=== PATIENT | male | born 1995 | race Caucasian/White ===

== ENCOUNTER 2018-11-16 13:46 | Inpatient (IN) | payer OTHER ==
[2018-11-16 18:11] VITALS: BMI 25.0
--- NOTE | 2018-11-16 18:59 | HP ---
COWS - Scale Resting Pulse: 0= [place] 80 or Below Sweatin= No chills or Flushing Restless Observation: 0= Sits Still Pupil Size: 0= Normal to Room Light Bone or Joint Aches: 0= None Runny Nose/ Eye Tearin= Constantly Teary/Runny GI Upset > 30mins: 0= None Tremor Observation: 2= Slight Tremor Visible Yawning Observation: 4= Several Times/Minute Anxiety or Irritability: 2=Irritable/Anxious Goose Flesh Skin: 0=Smooth Skin COWS Score: 12 CIWA Score - Admission Criteria OASAS Guidelines: Admission for Medically Managed Detox: Requires at least one of the followin. CIWA greater than 12 2. Seizures within the past 24 hours 3. Delirium tremens within the past 24 hours 4. Hallucinations within the past 24 hours 5. Acute intervention needed for co occurring medical disorder 6. Acute intervention needed for co occurring psychiatric disorder 7. Severe withdrawal that cannot be handled at a lower level of care (continued vomiting, continued diarrhea, abnormal vital signs) requiring intravenous medication and/or fluids 8. Admission ROS [facility] Allergies/Adverse Reactions: Allergies Allergy/AdvReac Type Severity Reaction Status Date / Time No Known Allergies Allergy Verified 11/16/18 18:05 History of Present Illness: pt here requesting detox from oxycodone use , reports 30 mg 1 -2 x/day since age 21 , illicitly , denies having rx , started using meds from a friend w/ sickle cell/ THR , latest use yesterday , current symptoms as above , reports if not using " I am not enjoying my time " claims was referred by a facility [place] . Longest sobriety 3-4 days . 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 The information displayed on this report is compiled from pharmacy submissions to the Department, and accurately reflects the information as submitted by the pharmacies. This report was requested by: Ade Angeles | Reference #: [id number] Others' Prescriptions Patient Name: Jude Holliday Date: 1995 Address: [address] [place] [address] Sex: Male Rx Written Rx Dispensed Drug Quantity Days Supply Prescriber Name 10/05/2018 10/05/2018 suboxone 2 mg-0.5 mg sl film 8 3 Sharif Li MD Exam Limitations: Clinical Condition - Ebola screening Have you traveled outside of the country in the last 21 days: No Have you had contact with anyone from an Ebola affected area: No - Review of Systems Constitutional: See HPI EENT: reports: See HPI, Nose Congestion Respiratory: reports: No Symptoms reported, Other (reports intermittent shortness of breath with smoking tobacco and cannabis) Cardiac: reports: Other (reports intermittent chest pain with smoking tobacco and cannabis) GI: reports: See HPI : reports: No Symptoms Reported Musculoskeletal: reports: Back Pain (reports scoliosis w/ chonic LBP) Integumentary: reports: No Symptoms Reported Neuro: reports: Headache (reports [facility] when not using oxycodone) Endocrine: reports: No Symptoms Reported Psychiatric: reports: Orientated x3, Anxious Patient History - Smoking Cessation Smoking history: Current every day smoker Initiated information on smoking cessation: No - Substances abused Oxycontin Substance route: Inhalation Frequency: Daily Amount used: 6 30 MG TABS Age of first use: 20 Date of last use: 11/15/18 Family Disease History - Family Disease History Family History: Denies Other Family History: no children Admission Physical Exam BHS - Vital Signs Vital Signs: Vital Signs - 24 hr 11/16/18 18:07 Temperature 99.1 F Pulse Rate 53 L Respiratory 18 Rate Blood Pressure 132/73 - Physical General Appearance: Yes: Mild Distress HEENTM: Yes: EOMI, Hearing grossly Normal, Normocephalic, Normal Voice Respiratory: Yes: Chest Non-Tender, Lungs Clear, Normal Breath Sounds Neck: Yes: No masses,lesions,Nodules, Trachea in good position Cardiology: Yes: Regular Rhythm, Regular Rate, S1, S2 Abdominal: Yes: Normal Bowel Sounds, Non Tender, Soft Back: Yes: Other (dextroscoliosis lumbar , tender PVM L-spine left > R side .) Musculoskeletal: Yes: Gait Steady, Back pain Extremities: Yes: Normal Inspection, Normal Range of Motion, Non-Tender, Tremors Neurological: Yes: Fully Oriented, Alert, Motor Strength 5/5, Normal Mood/Affect Integumentary: Yes: Warm - Diagnostic (1) Opioid abuse Current Visit: Yes Status: Acute (2) Nicotine dependence Current Visit: Yes Status: Chronic Qualifiers: Nicotine product type: cigarettes (3) Cannabis dependence Current Visit: Yes Status: Chronic (4) Sedative, hypnotic or anxiolytic abuse Current Visit: Yes Status: Acute (5) Alcohol abuse, episodic drinking behavior Current Visit: No Status: Suspected Breathalyzer - Breathalyzer Breathalyzer: 0 Urine Drug Screen - Test Device Lot number: [id number] Expiration date: 06/11/20 - Control Is test valid?: Yes - Results Drug screen NEGATIVE: No Urine drug screen results: THC-Marijuana, MET-Methamphetamine, OXY-Oxycodone, BZO-Benzodiazepines Inpatient Rehab Admission - Rehab Decision to Admit Inpatient rehab admission?: No
[2018-11-16] MEDS ORDERED: NICOTINE POLACRILEX 2 MG GUM BUC PRN (19:18)
[2018-11-16] MEDS ORDERED: DICYCLOMINE HCL 10 MG CAPSULE PO PRN (19:18)
[2018-11-16] MEDS ORDERED: cloNIDine HCL 0.1 MG TABLET PO PRN (19:18)
[2018-11-16] MEDS ORDERED: IBUPROFEN 400 MG TABLET (FP) PO PRN (19:18)
[2018-11-16] MEDS ORDERED: hydrOXYzine PAMOATE 25 MG CAPSULE (FP) PO PRN (19:18)
[2018-11-16] MEDS ORDERED: ACETAMINOPHEN 325 MG TABLET (FP) PO PRN ×2 (19:18)
[2018-11-16] MEDS ORDERED: MAGNESIUM CITRATE 300 ML BOTTLE PO PRN (19:18)
[2018-11-16] MEDS ORDERED: MAG HYDROX/AL HYDROX/SIMETH 30 ML UNIT-DOSE CUP PO PRN (19:18)
[2018-11-16] MEDS ORDERED: MENTHOL/PHENOL 1 EACH UD MM PRN (19:18)
[2018-11-16] MEDS: diazePAM 5 MG TABLET PO PRN (20:08)
[2018-11-16] MEDS: THIAMINE HCL 100 MG TABLET (FP) PO SCH (22:05)
[2018-11-16] MEDS: MELATONIN 5 MG TABLETS PO PRN (22:05)
[2018-11-16] MEDS: diazePAM 5 MG TABLET PO SCH (22:05)
[2018-11-16] MEDS ORDERED: METHADONE HCL 10 MG TABLET (FOR DETOX USE ONLY) PO ONE (23:00)
[2018-11-17] MEDS: diazePAM 5 MG TABLET PO SCH ×3 (06:20→22:14)
[2018-11-17] MEDS ORDERED: METHADONE HCL 5 MG TABLET (FOR DETOX USE ONLY) PO ONE (10:00)
[2018-11-17] MEDS: PRENATAL VITAMINS W/ FOLIC ACID TABLET (FP) PO SCH (10:15)
[2018-11-17] MEDS: MAGNESIUM HYDROX 2400MG/30ML ORAL SUSPENSION 30 ML CUP PO PRN (10:17)
[2018-11-17] MEDS ORDERED: PNEUMOCOCCAL 23 VACCINE 0.5 ML VIAL IM ONE (12:00)
[2018-11-17] MEDS ORDERED: PNEUMOC 13-VAL CONJ-DIP CRM/PF 0.5 ML DISP.SYRIN IM ONE (12:00)
[2018-11-17 12:37] LABS: ALK PHOS 47 U/L (45-117); ANION GAP 6 MMOL/L (8-16); BILIRUBIN,TOTAL 0.6 mg/dL (0.2-1); BLOOD UREA NITROGEN 13 mg/dL (7-18); CALCIUM 9.5 mg/dL (8.5-10.1); CHLORIDE 106 mmol/L (98-107); CO2 29 mmol/L (21-32); GLUCOSE,RANDOM 74 mg/dL (74-106); POTASSIUM 3.8 mmol/L (3.5-5.1); SGOT/AST 13 U/L (15-37); SGPT/ALT 21 U/L (13-61); SODIUM 141 mmol/L (136-145)
[2018-11-17 12:40] LABS: HEMATOCRIT 39.2 % (35.4-49); MCH 32.4 pg (25.7-33.7); MCHC 33.2 g/dl (32.0-35.9); MEAN CELL VOLUME 97.4 fl (80-96); MEAN PLT VOLUME 7.9 fl (7.5-11.1); PLATELET COUNT 321 K/MM3 (134-434); RBC 4.03 M/mm3 (4.00-5.60); WHITE BLOOD COUNT 5.9 K/mm3 (4.0-10.0)
[2018-11-17] MEDS: METHOCARBAMOL 500 MG TABLET PO PRN ×2 (13:30→22:16)
[2018-11-17] MEDS: diazePAM 5 MG TABLET PO PRN ×2 (13:30→17:53)
[2018-11-17] MEDS: NICOTINE 14 MG/24 HOURS TOPICAL PATCH TD SCH (15:30)
--- NOTE | 2018-11-17 17:17 | PN ---
BHS COWS - Scale Resting Pulse: 0= [place] 80 or Below Sweatin= Chills/Flushing Restless Observation: 1= Difficult to Sit Still Pupil Size: 0= Normal to Room Light Bone or Joint Aches: 2= Severe Diffuse Aches Runny Nose/ Eye Tearin= Nasal Congestion GI Upset > 30mins: 0= None Tremor Observation of Outstretched Hands: 0= None Yawning Observation: 1= 1-2x During Session Anxiety or Irritability: 2=Irritable/Anxious Goose Flesh Skin: 3=Piloerection COWS Score: 11 BHS Progress Note (SOAP) Subjective: Constipation, Interrupted Sleep, Body Aches. Objective: PATIENT A & O X 3, OBSERVED AMBULATING ON UNIT UNASSISTED. IN NO ACUTE DISTRESS. 11/17/18 17:15 Vital Signs Temperature 98.7 F 11/17/18 16:49 Pulse Rate 68 11/17/18 16:49 Respiratory Rate 19 11/17/18 16:49 Blood Pressure 109/65 11/17/18 16:49 O2 Sat by Pulse Oximetry (%) Laboratory Tests 11/17/18 11/17/18 11/17/18 07:30 07:30 07:30 WBC 5.9 RBC 4.03 Hgb 13.0 Hct 39.2 MCV 97.4 H MCH 32.4 MCHC 33.2 RDW 14.0 Plt Count 321 MPV 7.9 Sodium 141 Potassium 3.8 Chloride 106 Carbon Dioxide 29 Anion Gap 6 L BUN 13 Creatinine 1.0 Creat Clearance w eGFR 92.60 Random Glucose 74 Calcium 9.5 Total Bilirubin 0.6 AST 13 L ALT 21 Alkaline Phosphatase 47 Total Protein 7.0 Albumin 4.0 HIV 1&2 Antibody Screen Negative HIV P24 Antigen Negative LABS NOTED. RPR RESULT PENDING. 11/17/18 17:17 Assessment: 11/17/18 17:17 WITHDRAWAL SYMPTOMS. Plan: CONTINUE DETOX. INCREASE DAILY PO FLUID / WATER INTAKE.
[2018-11-17] MEDS: THIAMINE HCL 100 MG TABLET (FP) PO SCH (22:15)
[2018-11-17] MEDS: MELATONIN 5 MG TABLETS PO PRN (22:15)
[2018-11-18] MEDS ORDERED: METHADONE HCL 10 MG TABLET (FOR DETOX USE ONLY) PO ONE (10:00)
[2018-11-18] MEDS: NICOTINE 14 MG/24 HOURS TOPICAL PATCH TD SCH (10:10)
[2018-11-18] MEDS: diazePAM 5 MG TABLET PO SCH ×2 (10:10→22:21)
[2018-11-18] MEDS: PRENATAL VITAMINS W/ FOLIC ACID TABLET (FP) PO SCH (10:10)
[2018-11-18] MEDS: METHOCARBAMOL 500 MG TABLET PO PRN ×3 (10:10→23:12)
--- NOTE | 2018-11-18 11:20 | PN ---
S CIWA - CIWA Score Nausea/Vomitin Muscle Tremors: 2 Anxiety: 3 Agitation: 2 Paroxysmal Sweats: 1-Minimal Palms Moist Orientation: 0-Oriented Tacttile Disturbances: 1-Very Mild Itch/Numbness Auditory Disturbances: 1-Very Mild Visual Disturbances: 0-None Headache: 2-Mild CIWA-Ar Total Score: 14 BHS Progress Note (SOAP) Subjective: alert,irritable,anxious,interrupted sleep,tremor Objective: 11/18/18 11:19 Vital Signs Temperature 97.9 F 11/18/18 09:18 Pulse Rate 60 11/18/18 09:18 Respiratory Rate 18 11/18/18 09:18 Blood Pressure 110/61 11/18/18 09:18 O2 Sat by Pulse Oximetry (%) 11/18/18 11:19 Laboratory Last Values WBC 5.9 K/mm3 (4.0-10.0) 11/17/18 07:30 RBC 4.03 M/mm3 (4.00-5.60) 11/17/18 07:30 Hgb 13.0 GM/dL (11.7-16.9) 11/17/18 07:30 Hct 39.2 % (35.4-49) 11/17/18 07:30 MCV 97.4 fl (80-96) H 11/17/18 07:30 MCH 32.4 pg (25.7-33.7) 11/17/18 07:30 MCHC 33.2 g/dl (32.0-35.9) 11/17/18 07:30 RDW 14.0 % (11.9-15.9) 11/17/18 07:30 Plt Count 321 K/MM3 (134-434) 11/17/18 07:30 MPV 7.9 fl (7.5-11.1) 11/17/18 07:30 Sodium 141 mmol/L (136-145) 11/17/18 07:30 Potassium 3.8 mmol/L (3.5-5.1) 11/17/18 07:30 Chloride 106 mmol/L (98-107) 11/17/18 07:30 Carbon Dioxide 29 mmol/L (21-32) 11/17/18 07:30 Anion Gap 6 MMOL/L (8-16) L 11/17/18 07:30 BUN 13 mg/dL (7-18) 11/17/18 07:30 Creatinine 1.0 mg/dL (0.55-1.3) 11/17/18 07:30 Creat Clearance w eGFR 92.60 (>60) 11/17/18 07:30 Random Glucose 74 mg/dL (74-106) 11/17/18 07:30 Calcium 9.5 mg/dL (8.5-10.1) 11/17/18 07:30 Total Bilirubin 0.6 mg/dL (0.2-1) 11/17/18 07:30 AST 13 U/L (15-37) L 11/17/18 07:30 ALT 21 U/L (13-61) 11/17/18 07:30 Alkaline Phosphatase 47 U/L (45-117) 11/17/18 07:30 Total Protein 7.0 g/dl (6.4-8.2) 11/17/18 07:30 Albumin 4.0 g/dl (3.4-5.0) 11/17/18 07:30 RPR Titer Nonreactive (NONREACTIVE) 11/17/18 07:30 HIV 1&2 Antibody Screen Negative 11/17/18 07:30 HIV P24 Antigen Negative 11/17/18 07:30 Assessment: 11/18/18 11:19 withdrawal symptom Plan: continue detox
[2018-11-18] MEDS: MAGNESIUM HYDROX 2400MG/30ML ORAL SUSPENSION 30 ML CUP PO PRN ×2 (12:11→21:31)
[2018-11-18] MEDS: diazePAM 5 MG TABLET PO PRN (16:46)
--- NOTE | 2018-11-18 17:19 | EKG ---
Test Reason : Blood Pressure : / mmHG Vent. Rate : 050 BPM Atrial Rate : 050 BPM P-R Int : 176 ms QRS Dur : 102 ms QT Int : 378 ms P-R-T Axes : 040 080 053 degrees QTc Int : 344 ms SINUS BRADYCARDIA OTHERWISE NORMAL ECG NO PREVIOUS ECGS AVAILABLE Confirmed by CHANEL PLUNKETT, MELIDA ([id number]) on 11/18/2018 5:19:36 PM Referred By: MUSTAPHA BAIRD Confirmed By:MELIDA BUCHANAN MD
[2018-11-18] MEDS: THIAMINE HCL 100 MG TABLET (FP) PO SCH (22:03)
[2018-11-18] MEDS: MELATONIN 5 MG TABLETS PO PRN (22:04)
[2018-11-19] MEDS ORDERED: METHADONE HCL 5 MG TABLET (FOR DETOX USE ONLY) PO ONE (06:00)
[2018-11-19] MEDS ORDERED: diazePAM 5 MG TABLET PO SCH (06:00)
[2018-11-19] MEDS: METHOCARBAMOL 500 MG TABLET PO PRN (06:09)
--- NOTE | 2018-11-19 08:58 | DS ---
[facility] Detox Discharge Summary Admission Date: 11/16/18 Discharge Date: 11/19/18 - History Present History: Cannabis Dependence, Opioid Dependence, Sedative Dependence - Physical Exam Results Vital Signs: Vital Signs Temperature 97.9 F 11/19/18 06:13 Pulse Rate 50 L 11/19/18 06:13 Respiratory Rate 18 11/19/18 06:13 Blood Pressure 104/56 L 11/19/18 06:13 O2 Sat by Pulse Oximetry (%) - Treatment Hospital Course: Detox Protocol Followed, Detoxed Safely, Responded well, Discharged Condition Good, Rehab Referral Accepted - Medication Discharge Medications: Ambulatory Orders NK [No Known Home Medication] 11/16/18 - Diagnosis (1) Opioid abuse Current Visit: Yes Status: Chronic (2) Sedative, hypnotic or anxiolytic abuse Current Visit: Yes Status: Chronic (3) Cannabis dependence Current Visit: Yes Status: Chronic (4) Nicotine dependence Current Visit: Yes Status: Chronic Qualifiers: Nicotine product type: cigarettes (5) Alcohol abuse, episodic drinking behavior Current Visit: No Status: Suspected - AMA Did Patient Leave Against Medical Advice: No (referred to [facility] inpatient rehab)
[2018-11-19 09:50] VITALS: BP 125/65; PULSE 75; TEMP 98.4
[2018-11-19] MEDS: PRENATAL VITAMINS W/ FOLIC ACID TABLET (FP) PO SCH (10:04)
[2018-11-19] MEDS: NICOTINE 14 MG/24 HOURS TOPICAL PATCH TD SCH (10:05)
== END 2018-11-19 12:48 | disposition home or self-care (01) | DRG 773 ==
LOC: YASAS 13:46 → Y6N 19:41
PROVIDERS: ADMIT Surgery; ATTEND Surgery
PROC: HZ2ZZZZ Detoxification Services for Substance Abuse Treatment (ICD-10-PCS; principal; 2018-11-16)
DX: F11.23 Opioid dependence with withdrawal (principal); F10.230 Alcohol dependence with withdrawal, uncomplicated; F13.20 Sedative, hypnotic or anxiolytic dependence, uncomplicated; F12.20 Cannabis dependence, uncomplicated; F17.210 Nicotine dependence, cigarettes, uncomplicated
CPT/HCPCS: 36415; 80053; 85027; 86593; 87389; 90732; 93005; 93010; G0009

== ENCOUNTER 2019-07-14 16:06 | Inpatient (IN) | payer OTHER ==
[2019-07-14 17:41] VITALS: BMI 24.3
--- NOTE | 2019-07-14 19:07 | HP ---
COWS - Scale Resting Pulse: 0= [place] 80 or Below Sweatin= Chills/Flushing Restless Observation: 0= Sits Still Pupil Size: 0= Normal to Room Light Bone or Joint Aches: 4=Acute Joint/Muscle Pain Runny Nose/ Eye Tearin= Runny Nose/Eyes GI Upset > 30mins: 1= Stomach Cramp Tremor Observation: 0= None Yawning Observation: 1= 1-2x During Session Anxiety or Irritability: 1=Feels Anxious/Irritable Goose Flesh Skin: 0=Smooth Skin COWS Score: 10 CIWA Score - Admission Criteria OASAS Guidelines: Admission for Medically Managed Detox: Requires at least one of the followin. CIWA greater than 12 2. Seizures within the past 24 hours 3. Delirium tremens within the past 24 hours 4. Hallucinations within the past 24 hours 5. Acute intervention needed for co occurring medical disorder 6. Acute intervention needed for co occurring psychiatric disorder 7. Severe withdrawal that cannot be handled at a lower level of care (continued vomiting, continued diarrhea, abnormal vital signs) requiring intravenous medication and/or fluids 8. Admitting History and Physical - Smoking History Smoking history: Current every day smoker Have you smoked in the past 12 months: Yes Aproximately how many cigarettes per day: 10 Admission ROS [facility] Chief Complaint: HERE FOR HEROIN DETOX. Allergies/Adverse Reactions: Allergies Allergy/AdvReac Type Severity Reaction Status Date / Time No Known Allergies Allergy Verified 07/14/19 17:23 History of Present Illness: HERE FOR HEROIN DETOX. CLIENT IS REFERRED BY HIS OUTPATIENT PROGRAM [facility] . HE REPORTS DAILY USE OF HEROIN. APPROX 5 BAGS NASALLY. DENIES IVDU, + HX/O OVERDOSE "COUPLE OF TIMES" LAST EPISODE 02/2019. STATES LAST USE EARLIER TODAY ABOUT 4 BAGS. HIS ADDICTION STARTED 3 YEARS AGO.REPORTS CLEAN TIME OF 6 MONTHS RELAPSING 6 MONTHS AGO. HE REPORTS CANNABIS ABUSE WELL. LIVES WITH FAMILY, UNEMPLOYED, DENIES LEGALS Exam Limitations: No Limitations - Ebola screening Have you traveled outside of the country in the last 21 days: No (N) Have you had contact with anyone from an Ebola affected area: No Do you have a fever: No - Review of Systems Constitutional: Chills, Malaise, Night Sweats, Changes in sleep EENT: reports: No Symptoms Reported Respiratory: reports: Shortness of Breath, Other (COUGH) Cardiac: reports: Chest Tightness (WHEN LYING DOWN DUE TO SOB AND COUGH) GI: reports: Constipated, Abdominal cramping : reports: No Symptoms Reported Musculoskeletal: reports: Back Pain Integumentary: reports: Flushing, Sweating Neuro: reports: Headache, Dizziness Endocrine: reports: No Symptoms Reported Hematology: reports: No Symptoms Reported Psychiatric: reports: Orientated x3, Anxious Other Systems: Reviewed and Negative Patient History - Patient Medical History Hx Anemia: No Hx Asthma: No Hx Chronic Obstructive Pulmonary Disease (COPD): No Hx Cancer: No Hx Cardiac Disorders: No Hx Congestive Heart Failure: No Hx Hypertension: No Hx Hypercholesterolemia: No Hx Pacemaker: No HX Cerebrovascular Accident: No Hx Seizures: No Hx Dementia: No Hx Diabetes: No Hx Gastrointestinal Disorders: No Hx Liver Disease: No Hx Genitourinary Disorders: No Hx Sexually Transmitted Disorders: No Hx Renal Disease (ESRD): No Hx Thyroid Disease: No Hx Human Immunodeficiency Virus (HIV): No Hx Hepatitis C: No Hx Depression: No Hx Suicide Attempt: No Hx Bipolar Disorder: Yes (NON COMPLIANT WITH MEDS. DENIES PREV HOSPITALIZATIONS) Hx Schizophrenia: No Other Medical History: DENIES - Patient Surgical History Past Surgical History: No Hx Neurologic Surgery: No Hx Cataract Extraction: No Hx Cardiac Surgery: No Hx Lung Surgery: No Hx Breast Surgery: No Hx Breast Biopsy: No Hx Abdominal Surgery: No Hx Appendectomy: No Hx Cholecystectomy: No Hx Genitourinary Surgery: No Hx Section: No Hx Orthopedic Surgery: No Anesthesia Reaction: No - PPD History Previous Implant?: Yes Documented Results: Negative w/o proof Implanted On Prior [facility] Admission?: No PPD to be Administered?: Yes - Smoking Cessation Smoking history: Current every day smoker Have you smoked in the past 12 months: Yes Aproximately how many cigarettes per day: 20 Cigars Per Day: 0 Hx Chewing Tobacco Use: No Initiated information on smoking cessation: Yes 'Breaking Loose' booklet given: 07/14/19 - Substance & Tx. History Hx Alcohol Use: No Hx Substance Use: Yes Substance Use Type: Heroin Hx Substance Use Treatment: Yes ([facility]) - Substances abused Oxycontin Substance route: Inhalation Frequency: 1-3 times last 30 days Amount used: 6 30 MG TABS Age of first use: 20 Date of last use: 06/13/19 Heroin Substance route: Inhalation Frequency: Daily Amount used: 5 BAGS Age of first use: 23 Date of last use: 07/14/19 Admission Physical Exam [facility] - Vital Signs Vital Signs: Vital Signs - 24 hr 07/14/19 07/14/19 17:24 19:00 Temperature 98.0 F 98.0 F Pulse Rate 59 L 59 L Respiratory 18 18 Rate Blood Pressure 101/61 101/61 - Physical General Appearance: Yes: Mild Distress, Anxious HEENTM: Yes: EOMI, Normocephalic, Normal Voice, ROBYN, Pharynx Normal, Rhinorrhea Respiratory: Yes: Chest Non-Tender, Lungs Clear, Normal Breath Sounds, No Respiratory Distress, No Accessory Muscle Use Neck: Yes: No masses,lesions,Nodules, Supple, Trachea in good position Breast: Yes: Breasts Symetrical Cardiology: Yes: Regular Rhythm, Regular Rate, S1, S2 Abdominal: Yes: Normal Bowel Sounds, Non Tender, Soft Genitourinary: Yes: Within Normal Limits Back: Yes: Normal Inspection Musculoskeletal: Yes: full range of Motion, Gait Steady Extremities: Yes: Normal Capillary Refill, Normal Range of Motion, Non-Tender Neurological: Yes: Fully Oriented, Alert, Motor Strength 5/5, Depressed Affect Integumentary: Yes: Cold, Clammy Lymphatic: Yes: Within Normal Limits - Diagnostic (1) Opioid dependence with withdrawal Current Visit: Yes Status: Acute (2) History of bipolar disorder Current Visit: Yes Status: Chronic (3) Non compliance w medication regimen Current Visit: Yes Status: Suspected (4) Nicotine dependence Current Visit: Yes Status: Chronic Qualifiers: Nicotine product type: cigarettes Substance use status: uncomplicated Qualified Code(s): F17.210 - Nicotine dependence, cigarettes, uncomplicated Cleared for Admission [facility] - Detox or Rehab [facility] Level of Care: Medically Managed Detox Regimen/Protocol: Methadone Claeared for Rehab Admission: No Breathalyzer - Breathalyzer Breathalyzer: 0 Urine Drug Screen - Test Device Lot number: [id number] Expiration date: 02/09/21 - Control Is test valid?: Yes - Results Drug screen NEGATIVE: No Urine drug screen results: FEN-Fentanyl, MOP-Opiates Inpatient Rehab Admission - Rehab Decision to Admit Inpatient rehab admission?: No
[2019-07-14] MEDS ORDERED: MAGNESIUM CITRATE 300 ML BOTTLE PO PRN (19:17)
[2019-07-14] MEDS ORDERED: DICYCLOMINE HCL 10 MG CAPSULE PO PRN (19:17)
[2019-07-14] MEDS ORDERED: BISMUTH SUBSALICYLATE 524 MG/30 ML UD PO PRN (19:17)
[2019-07-14] MEDS ORDERED: ACETAMINOPHEN 325 MG TABLET (FP) PO PRN ×2 (19:17)
[2019-07-14] MEDS ORDERED: ONDANSETRON *ODT* 4 MG TABLET SL PRN (19:17)
[2019-07-14] MEDS ORDERED: MAG HYDROX/AL HYDROX/SIMETH 30 ML UNIT-DOSE CUP PO PRN (19:17)
[2019-07-14] MEDS ORDERED: NALOXONE HCL 0.4 MG/ML VIAL IM PRN (19:17)
[2019-07-14] MEDS ORDERED: MAGNESIUM HYDROX 2400MG/30ML ORAL SUSPENSION 30 ML CUP PO PRN (19:17)
[2019-07-14] MEDS ORDERED: P-EPHED 60MG/TRIPROLIDI 2.5MG TABLET PO PRN (19:17)
[2019-07-14] MEDS ORDERED: cloNIDine HCL 0.1 MG TABLET PO PRN (19:17)
[2019-07-14] MEDS ORDERED: MENTHOL/PHENOL 1 EACH UD MM PRN (19:17)
[2019-07-14] MEDS ORDERED: METHADONE HCL 10 MG TABLET (FOR DETOX USE ONLY) PO ONE (20:30)
[2019-07-14] MEDS: NICOTINE POLACRILEX 2 MG GUM BUC PRN (21:13)
[2019-07-14] MEDS: THIAMINE HCL 100 MG TABLET (FP) PO SCH (22:43)
[2019-07-14] MEDS: DOCUSATE SODIUM 100 MG CAPSULE (FP) PO SCH (22:44)
[2019-07-14] MEDS: METHOCARBAMOL 500 MG TABLET PO PRN (22:45)
[2019-07-14] MEDS: IBUPROFEN 400 MG TABLET (FP) PO PRN (22:45)
[2019-07-15] MEDS: IBUPROFEN 400 MG TABLET (FP) PO PRN ×3 (05:37→22:47)
[2019-07-15] MEDS ORDERED: METHADONE HCL 10 MG TABLET (FOR DETOX USE ONLY) ONE (08:46)
[2019-07-15] MEDS ORDERED: METHADONE HCL 5 MG TABLET (FOR DETOX USE ONLY) ONE (08:47)
[2019-07-15] MEDS: PRENATAL VITAMINS W/ FOLIC ACID TABLET (FP) PO SCH (09:34)
[2019-07-15] MEDS: hydrOXYzine PAMOATE 25 MG CAPSULE (FP) PO PRN (09:34)
[2019-07-15] MEDS: METHOCARBAMOL 500 MG TABLET PO PRN ×3 (09:35→22:47)
[2019-07-15] MEDS: NICOTINE 21 MG/24 HOURS TOPICAL PATCH TD SCH (09:36)
[2019-07-15] MEDS ORDERED: METHADONE (DETOX) 20 MG, METHADONE (DETOX) 5 MG PO ONE (10:00)
[2019-07-15 10:14] LABS: ALBUMIN 3.6 g/dl (3.4-5.0); BILIRUBIN,TOTAL 0.6 mg/dL (0.2-1); CALCIUM 8.9 mg/dL (8.5-10.1); POTASSIUM 4.1 mmol/L (3.5-5.1); TOT PROT 6.4 g/dl (6.4-8.2)
[2019-07-15 10:17] LABS: HEMATOCRIT 34.9 % (35.4-49); HEMOGLOBIN 11.6 GM/dL (11.7-16.9); MCH 31.9 pg (25.7-33.7); MCHC 33.1 g/dl (32.0-35.9); MEAN CELL VOLUME 96.4 fl (80-96); MEAN PLT VOLUME 7.7 fl (7.5-11.1); PLATELET COUNT 288 K/MM3 (134-434); RBC 3.62 M/mm3 (4.00-5.60); RDW 13.8 % (11.9-15.9)
[2019-07-15] MEDS ORDERED: LIDOCAINE 5% TOPICAL PATCH TP ONE (10:37)
--- NOTE | 2019-07-15 10:54 | CONSULT ---
[facility] Psychiatric Consult - Data Date of interview: 07/15/19 Admission source: [facility] Identifying data: Revisit to [facility] and admission to [address] [place] [address] for this 24 y/o male self-referred for detoxification treatment. MICHAEL issues : heroin, nicotine and occasional use of cannabis. Patient is single, no dependents, domiciled (lives with his brother), unemployed and supported by relatives. Substance Abuse History: Discussed with the patient. Details in current [facility] report as follows : Smoking history: Current every day smoker. Have you smoked in the past 12 months: Yes. Aproximately how many cigarettes per day: 20. Cigars Per Day: 0. Hx Chewing Tobacco Use: No. Initiated information on smoking cessation: Yes. 'Breaking Loose' booklet given: 07/14/19. - Substance & Tx. History. Hx Alcohol Use: No. Hx Substance Use: Yes. Substance Use Type : Heroin. Hx Substance Use Treatment: Yes ([facility]). - Substances abused. Oxycontin. Substance route: Inhalation. Frequency: 1-3 times last 30 days. Amount used: 6 30 MG TABS. Age of first use: 20. Date of last use: 06/13/19. Heroin. Substance route: Inhalation. Frequency: Daily. Amount used: 5 BAGS. Age of first use: 23. Date of last use: 07/14/19 Medical History: Patient endorses good general health. Psychiatric History: Patient denies history of psychiatric hospitalizations. He indicates prior psychiatric OPD care at the [facility] in [place] ([facility] Mr Brunner endorses the diagnosis of Anxiety Disorder (also diagnosed by some with bipolar disorder). Reportedly, this patient used to be prescribed seroquel + valproate + suboxone. Lost to follow-up and non-compliant with medications for " more than six months." Patient denies history of suicide attempts. Physical/Sexual Abuse/Trauma History: Patient denies history of abuse. Additional Comment: Urine drug screen results: FEN-Fentanyl, MOP-Opiates. Noted. Mental Status Exam - Mental Status Exam Alert and Oriented to: Time, Place, Person Cognitive Function: Good Patient Appearance: Well Groomed Mood: Anxious, Hopeful Affect: Appropriate, Normal Range Patient Behavior: Fatigued, Appropriate, Cooperative Speech Pattern: Clear Voice Loudness: Normal Thought Process: Intact, Goal Oriented Thought Disorder: Not Present Hallucinations: Denies Suicidal Ideation: Denies Homicidal Ideation: Denies Insight/Judgement: Poor Sleep: Poorly, Difficulty falling asleep (wants seroquel back to his regimen, but not to exceed 50 mg at bedtime) Appetite: Good Muscle strength/Tone: Normal Gait/Station: Normal Psychiatric Findings - Problem List ([place] 1, 2,3) (1) Opioid dependence with withdrawal Current Visit: Yes Status: Acute (2) Nicotine dependence Current Visit: Yes Status: Chronic Qualifiers: Nicotine product type: cigarettes Substance use status: uncomplicated Qualified Code(s): F17.210 - Nicotine dependence, cigarettes, uncomplicated (3) History of bipolar disorder Current Visit: Yes Status: Chronic (4) Substance induced mood disorder Current Visit: Yes Status: Chronic (5) Insomnia Current Visit: Yes Status: Chronic (6) Non compliance w medication regimen Current Visit: Yes Status: Chronic - Initial Treatment Plan Initial Treatment Plan: Psychoeducation. Sleep hygiene. Detoxification. Support. MAT services : discussed with patient. AA meetings. Motivational counseling provided in this session. Groups. Seroquel 50 mg po hs. Ordered at patient's request.Side effects/benefits are discussed with the patient. Mr Brunner is in agreement with this plan of care. Gave infomed consent (verbal) to MD. Iraheta.
--- NOTE | 2019-07-15 10:54 | PN ---
S COWS - Scale Resting Pulse: 0= [place] 80 or Below Sweatin= Beads of Sweat on Face Restless Observation: 1= Difficult to Sit Still Pupil Size: 0= Normal to Room Light Bone or Joint Aches: 2= Severe Diffuse Aches Runny Nose/ Eye Tearin= None GI Upset > 30mins: 0= None Tremor Observation of Outstretched Hands: 0= None Yawning Observation: 1= 1-2x During Session Anxiety or Irritability: 2=Irritable/Anxious Goose Flesh Skin: 0=Smooth Skin COWS Score: 9 S Progress Note (SOAP) Subjective: c/o muscle aches, sweats, anxiety, and irritability Objective: 07/15/19 10:53 Vital Signs 07/15/19 07/15/19 07/15/19 03:30 06:32 09:13 Temperature 97.9 F 97.8 F Pulse Rate 50 L 55 L Respiratory 18 18 18 Rate Blood Pressure 102/56 L 120/64 Lab Results WBC 6.0 K/mm3 (4.0-10.0) 07/15/19 07:40 RBC 3.62 M/mm3 (4.00-5.60) L 07/15/19 07:40 Hgb 11.6 GM/dL (11.7-16.9) L 07/15/19 07:40 Hct 34.9 % (35.4-49) L 07/15/19 07:40 MCV 96.4 fl (80-96) H 07/15/19 07:40 MCHC 33.1 g/dl (32.0-35.9) 07/15/19 07:40 RDW 13.8 % (11.9-15.9) 07/15/19 07:40 Plt Count 288 K/MM3 (134-434) 07/15/19 07:40 Sodium 140 mmol/L (136-145) 07/15/19 07:40 Potassium 4.1 mmol/L (3.5-5.1) 07/15/19 07:40 Chloride 107 mmol/L (98-107) 07/15/19 07:40 Carbon Dioxide 29 mmol/L (21-32) 07/15/19 07:40 Anion Gap 4 MMOL/L (8-16) L 07/15/19 07:40 BUN 17.0 mg/dL (7-18) 07/15/19 07:40 Creatinine 1.0 mg/dL (0.55-1.3) 07/15/19 07:40 Random Glucose 70 mg/dL (74-106) L 07/15/19 07:40 Calcium 8.9 mg/dL (8.5-10.1) 07/15/19 07:40 Labs noted. Assessment: 07/15/19 10:53 AOX3, in no acute respiratory distress. Full ROM, ambulating in the unit. Withdrawal symptoms. Plan: continue detox.
--- NOTE | 2019-07-15 13:26 | EKG ---
Test Reason : Blood Pressure : / mmHG Vent. Rate : 062 BPM Atrial Rate : 062 BPM P-R Int : 176 ms QRS Dur : 102 ms QT Int : 370 ms P-R-T Axes : 049 073 051 degrees QTc Int : 375 ms NORMAL SINUS RHYTHM NORMAL ECG WHEN COMPARED WITH ECG OF 18-NOV-2018 10:37, NO SIGNIFICANT CHANGE WAS FOUND Confirmed by MELIDA BUCHANAN MD ([id number]) on 07/15/2019 1:26:29 PM Referred By: Confirmed By:MELIDA BUCHANAN MD
[2019-07-15 18:37] LABS: PH,URINE 6.5 (5.0-8.0); URINE APPEARANCE CLEAR; URINE BILIRUBIN NEGATIVE (NEGATIVE); URINE COLOR YELLOW; URINE GLUCOSE (UA) NEGATIVE (NEGATIVE); URINE KETONE NEGATIVE (NEGATIVE); URINE LEUK ESTERASE NEGATIVE (NEGATIVE); URINE NITRITE NEGATIVE (NEGATIVE); URINE PROTEIN NEGATIVE (NEGATIVE); URINE UROBILINOGEN 0.2 mg/dL (0.2-1.0)
[2019-07-15] MEDS: DOCUSATE SODIUM 100 MG CAPSULE (FP) PO SCH (22:44)
[2019-07-15] MEDS: THIAMINE HCL 100 MG TABLET (FP) PO SCH (22:45)
[2019-07-15] MEDS: LIDOCAINE PATCH REMOVAL MC SCH ×2 (22:45→22:46)
[2019-07-15] MEDS: QUEtiapine FUMARATE 50 MG TABLET PO SCH (22:46)
[2019-07-16] MEDS: METHOCARBAMOL 500 MG TABLET PO PRN ×4 (05:34→23:45)
[2019-07-16] MEDS ORDERED: METHADONE HCL 10 MG TABLET (FOR DETOX USE ONLY) PO ONE (10:00)
[2019-07-16] MEDS: PRENATAL VITAMINS W/ FOLIC ACID TABLET (FP) PO SCH (10:20)
[2019-07-16] MEDS: LIDOCAINE 5% TOPICAL PATCH TP SCH (10:20)
[2019-07-16] MEDS: NICOTINE 21 MG/24 HOURS TOPICAL PATCH TD SCH (10:23)
--- NOTE | 2019-07-16 11:56 | PN ---
BHS COWS - Scale Resting Pulse: 0= [place] 80 or Below Sweatin= Beads of Sweat on Face Restless Observation: 1= Difficult to Sit Still Pupil Size: 0= Normal to Room Light Bone or Joint Aches: 1= Mild Discomfort Runny Nose/ Eye Tearin= None GI Upset > 30mins: 0= None Tremor Observation of Outstretched Hands: 0= None Yawning Observation: 1= 1-2x During Session Anxiety or Irritability: 2=Irritable/Anxious Goose Flesh Skin: 0=Smooth Skin COWS Score: 8 BHS Progress Note (SOAP) Subjective: c/o irritability, anxiety, sweats, chills, muscle aches. Objective: 07/16/19 11:57 Vital Signs 07/16/19 07/16/19 06:23 09:14 Temperature 97.5 F L Pulse Rate 45 L 55 L Respiratory 16 20 Rate Blood Pressure 101/57 L 117/73 Laboratory Last Values WBC 6.0 K/mm3 (4.0-10.0) 07/15/19 07:40 RBC 3.62 M/mm3 (4.00-5.60) L 07/15/19 07:40 Hgb 11.6 GM/dL (11.7-16.9) L 07/15/19 07:40 Hct 34.9 % (35.4-49) L 07/15/19 07:40 MCV 96.4 fl (80-96) H 07/15/19 07:40 MCH 31.9 pg (25.7-33.7) 07/15/19 07:40 MCHC 33.1 g/dl (32.0-35.9) 07/15/19 07:40 RDW 13.8 % (11.9-15.9) 07/15/19 07:40 Plt Count 288 K/MM3 (134-434) 07/15/19 07:40 MPV 7.7 fl (7.5-11.1) 07/15/19 07:40 Sodium 140 mmol/L (136-145) 07/15/19 07:40 Potassium 4.1 mmol/L (3.5-5.1) 07/15/19 07:40 Chloride 107 mmol/L (98-107) 07/15/19 07:40 Carbon Dioxide 29 mmol/L (21-32) 07/15/19 07:40 Anion Gap 4 MMOL/L (8-16) L 07/15/19 07:40 BUN 17.0 mg/dL (7-18) 07/15/19 07:40 Creatinine 1.0 mg/dL (0.55-1.3) 07/15/19 07:40 Est GFR (CKD-EPI)AfAm 121.55 07/15/19 07:40 Est GFR (CKD-EPI)NonAf 104.88 07/15/19 07:40 Random Glucose 70 mg/dL (74-106) L 07/15/19 07:40 Calcium 8.9 mg/dL (8.5-10.1) 07/15/19 07:40 Total Bilirubin 0.6 mg/dL (0.2-1) 07/15/19 07:40 AST 18 U/L (15-37) 07/15/19 07:40 ALT 18 U/L (13-61) 07/15/19 07:40 Alkaline Phosphatase 56 U/L (45-117) 07/15/19 07:40 Total Protein 6.4 g/dl (6.4-8.2) 07/15/19 07:40 Albumin 3.6 g/dl (3.4-5.0) 07/15/19 07:40 Urine Color Yellow 07/15/19 12:00 Urine Appearance Clear 07/15/19 12:00 Urine pH 6.5 (5.0-8.0) 07/15/19 12:00 Ur Specific [place] 1.024 (1.010-1.035) 07/15/19 12:00 Urine Protein Negative (NEGATIVE) 07/15/19 12:00 Urine Glucose (UA) Negative (NEGATIVE) 07/15/19 12:00 Urine Ketones Negative (NEGATIVE) 07/15/19 12:00 Urine Blood Negative (NEGATIVE) 07/15/19 12:00 Urine Nitrite Negative (NEGATIVE) 07/15/19 12:00 Urine Bilirubin Negative (NEGATIVE) 07/15/19 12:00 Urine Urobilinogen 0.2 mg/dL (0.2-1.0) 07/15/19 12:00 Ur Leukocyte Esterase Negative (NEGATIVE) 07/15/19 12:00 RPR Titer Nonreactive (NONREACTIVE) 07/15/19 07:40 Labs noted. Assessment: AOX3, in no acute respiratory distress. Full ROM, ambulating in the unit. Withdrawal symptoms. Plan: continue detox.
[2019-07-16] MEDS: IBUPROFEN 400 MG TABLET (FP) PO PRN ×2 (16:00→23:44)
[2019-07-16] MEDS: hydrOXYzine PAMOATE 25 MG CAPSULE (FP) PO PRN (17:55)
[2019-07-16] MEDS: THIAMINE HCL 100 MG TABLET (FP) PO SCH (22:00)
[2019-07-16] MEDS: DOCUSATE SODIUM 100 MG CAPSULE (FP) PO SCH (22:20)
[2019-07-16] MEDS: LIDOCAINE PATCH REMOVAL MC SCH ×2 (22:21)
[2019-07-16] MEDS: MELATONIN 5 MG TABLETS PO PRN (22:21)
[2019-07-16] MEDS: QUEtiapine FUMARATE 50 MG TABLET PO SCH (22:21)
[2019-07-16] MEDS: guaiFENesin 200 MG/10 ML 10 ML UNIT-DOSE CUPS PO PRN (23:00)
[2019-07-17] MEDS ORDERED: METHADONE HCL 5 MG TABLET (FOR DETOX USE ONLY) ONE (09:11)
[2019-07-17] MEDS ORDERED: METHADONE HCL 10 MG TABLET (FOR DETOX USE ONLY) ONE (09:11)
[2019-07-17] MEDS ORDERED: METHADONE (DETOX) 10 MG, METHADONE (DETOX) 5 MG PO ONE (10:00)
[2019-07-17] MEDS: PRENATAL VITAMINS W/ FOLIC ACID TABLET (FP) PO SCH (10:06)
[2019-07-17] MEDS: guaiFENesin 200 MG/10 ML 10 ML UNIT-DOSE CUPS PO PRN ×2 (10:07→22:05)
[2019-07-17] MEDS: LIDOCAINE 5% TOPICAL PATCH TP SCH (10:07)
[2019-07-17] MEDS: NICOTINE 21 MG/24 HOURS TOPICAL PATCH TD SCH (10:07)
[2019-07-17] MEDS: hydrOXYzine PAMOATE 25 MG CAPSULE (FP) PO PRN ×2 (10:09→17:44)
[2019-07-17] MEDS: METHOCARBAMOL 500 MG TABLET PO PRN ×3 (10:09→23:58)
--- NOTE | 2019-07-17 11:05 | PN ---
BHS COWS - Scale Resting Pulse: 0= [place] 80 or Below Sweatin= Chills/Flushing Restless Observation: 0= Sits Still Pupil Size: 1= Pupils >than Normal Bone or Joint Aches: 1= Mild Discomfort Runny Nose/ Eye Tearin= None GI Upset > 30mins: 0= None Tremor Observation of Outstretched Hands: 1= Tremor [place], Not Seen Yawning Observation: 0= None Anxiety or Irritability: 1=Feels Anxious/Irritable Goose Flesh Skin: 0=Smooth Skin COWS Score: 5 BHS Progress Note (SOAP) Subjective: 24 years old male admitted on 07/14/19 for opiate withdrawal sx management treating with methadone detox regimen sitting on the edge of the bed eating breakfast tolerate food and fluid well discussed medication assisted treatment program and picking up narcan from pharmacy Objective: 07/17/19 11:04 Vital Signs Temperature 97.0 F L 07/17/19 09:25 Pulse Rate 61 07/17/19 09:25 Respiratory Rate 18 07/17/19 09:25 Blood Pressure 101/54 L 07/17/19 09:25 O2 Sat by Pulse Oximetry (%) Laboratory Last Values WBC 6.0 K/mm3 (4.0-10.0) 07/15/19 07:40 RBC 3.62 M/mm3 (4.00-5.60) L 07/15/19 07:40 Hgb 11.6 GM/dL (11.7-16.9) L 07/15/19 07:40 Hct 34.9 % (35.4-49) L 07/15/19 07:40 MCV 96.4 fl (80-96) H 07/15/19 07:40 MCH 31.9 pg (25.7-33.7) 07/15/19 07:40 MCHC 33.1 g/dl (32.0-35.9) 07/15/19 07:40 RDW 13.8 % (11.9-15.9) 07/15/19 07:40 Plt Count 288 K/MM3 (134-434) 07/15/19 07:40 MPV 7.7 fl (7.5-11.1) 07/15/19 07:40 Sodium 140 mmol/L (136-145) 07/15/19 07:40 Potassium 4.1 mmol/L (3.5-5.1) 07/15/19 07:40 Chloride 107 mmol/L (98-107) 07/15/19 07:40 Carbon Dioxide 29 mmol/L (21-32) 07/15/19 07:40 Anion Gap 4 MMOL/L (8-16) L 07/15/19 07:40 BUN 17.0 mg/dL (7-18) 07/15/19 07:40 Creatinine 1.0 mg/dL (0.55-1.3) 07/15/19 07:40 Est GFR (CKD-EPI)AfAm 121.55 07/15/19 07:40 Est GFR (CKD-EPI)NonAf 104.88 07/15/19 07:40 Random Glucose 70 mg/dL (74-106) L 07/15/19 07:40 Calcium 8.9 mg/dL (8.5-10.1) 07/15/19 07:40 Total Bilirubin 0.6 mg/dL (0.2-1) 07/15/19 07:40 AST 18 U/L (15-37) 07/15/19 07:40 ALT 18 U/L (13-61) 07/15/19 07:40 Alkaline Phosphatase 56 U/L (45-117) 07/15/19 07:40 Total Protein 6.4 g/dl (6.4-8.2) 07/15/19 07:40 Albumin 3.6 g/dl (3.4-5.0) 07/15/19 07:40 Urine Color Yellow 07/15/19 12:00 Urine Appearance Clear 07/15/19 12:00 Urine pH 6.5 (5.0-8.0) 07/15/19 12:00 Ur Specific [place] 1.024 (1.010-1.035) 07/15/19 12:00 Urine Protein Negative (NEGATIVE) 07/15/19 12:00 Urine Glucose (UA) Negative (NEGATIVE) 07/15/19 12:00 Urine Ketones Negative (NEGATIVE) 07/15/19 12:00 Urine Blood Negative (NEGATIVE) 07/15/19 12:00 Urine Nitrite Negative (NEGATIVE) 07/15/19 12:00 Urine Bilirubin Negative (NEGATIVE) 07/15/19 12:00 Urine Urobilinogen 0.2 mg/dL (0.2-1.0) 07/15/19 12:00 Ur Leukocyte Esterase Negative (NEGATIVE) 07/15/19 12:00 RPR Titer Nonreactive (NONREACTIVE) 07/15/19 07:40 lab noted Assessment: 07/17/19 11:05 opiate withdrawal Plan: methadone regimen
[2019-07-17] MEDS: NICOTINE POLACRILEX 2 MG GUM BUC PRN (17:41)
[2019-07-17] MEDS: IBUPROFEN 400 MG TABLET (FP) PO PRN ×2 (17:44→23:59)
[2019-07-17] MEDS: THIAMINE HCL 100 MG TABLET (FP) PO SCH (22:03)
[2019-07-17] MEDS: QUEtiapine FUMARATE 50 MG TABLET PO SCH (22:04)
[2019-07-17] MEDS: DOCUSATE SODIUM 100 MG CAPSULE (FP) PO SCH (22:04)
[2019-07-17] MEDS: LIDOCAINE PATCH REMOVAL MC SCH ×2 (22:05)
[2019-07-17] MEDS: MELATONIN 5 MG TABLETS PO PRN (22:06)
[2019-07-18] MEDS: hydrOXYzine PAMOATE 25 MG CAPSULE (FP) PO PRN ×2 (00:01→15:44)
[2019-07-18] MEDS ORDERED: METHADONE HCL 10 MG TABLET (FOR DETOX USE ONLY) PO ONE (10:00)
[2019-07-18] MEDS: PRENATAL VITAMINS W/ FOLIC ACID TABLET (FP) PO SCH (10:29)
[2019-07-18] MEDS: METHOCARBAMOL 500 MG TABLET PO PRN ×2 (10:29→17:26)
[2019-07-18] MEDS: guaiFENesin 200 MG/10 ML 10 ML UNIT-DOSE CUPS PO PRN ×2 (10:32→17:26)
[2019-07-18] MEDS: LIDOCAINE 5% TOPICAL PATCH TP SCH (10:32)
[2019-07-18] MEDS: NICOTINE 21 MG/24 HOURS TOPICAL PATCH TD SCH (10:32)
--- NOTE | 2019-07-18 12:21 | PN ---
BHS COWS - Scale Resting Pulse: 0= [place] 80 or Below Sweatin= Chills/Flushing Restless Observation: 0= Sits Still Pupil Size: 0= Normal to Room Light Bone or Joint Aches: 0= None Runny Nose/ Eye Tearin= None GI Upset > 30mins: 0= None Tremor Observation of Outstretched Hands: 1= Tremor [place], Not Seen Yawning Observation: 0= None Anxiety or Irritability: 1=Feels Anxious/Irritable Goose Flesh Skin: 0=Smooth Skin COWS Score: 3 BHS Progress Note (SOAP) Subjective: 24 years old male admitted on 07/14/19 for opiate withdrawal sx management treating with methadone detox regimen feeling better today mild body aches discuss aftercare with staff patient prefers to go to [facility] in patient rehab discuss medication assisted treatment program 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 Objective: 07/18/19 12:23 Vital Signs Temperature 96.8 F L 07/18/19 09:01 Pulse Rate 59 L 07/18/19 09:01 Respiratory Rate 18 07/18/19 09:01 Blood Pressure 100/54 L 07/18/19 09:01 O2 Sat by Pulse Oximetry (%) Laboratory Last Values WBC 6.0 K/mm3 (4.0-10.0) 07/15/19 07:40 RBC 3.62 M/mm3 (4.00-5.60) L 07/15/19 07:40 Hgb 11.6 GM/dL (11.7-16.9) L 07/15/19 07:40 Hct 34.9 % (35.4-49) L 07/15/19 07:40 MCV 96.4 fl (80-96) H 07/15/19 07:40 MCH 31.9 pg (25.7-33.7) 07/15/19 07:40 MCHC 33.1 g/dl (32.0-35.9) 07/15/19 07:40 RDW 13.8 % (11.9-15.9) 07/15/19 07:40 Plt Count 288 K/MM3 (134-434) 07/15/19 07:40 MPV 7.7 fl (7.5-11.1) 07/15/19 07:40 Sodium 140 mmol/L (136-145) 07/15/19 07:40 Potassium 4.1 mmol/L (3.5-5.1) 07/15/19 07:40 Chloride 107 mmol/L (98-107) 07/15/19 07:40 Carbon Dioxide 29 mmol/L (21-32) 07/15/19 07:40 Anion Gap 4 MMOL/L (8-16) L 07/15/19 07:40 BUN 17.0 mg/dL (7-18) 07/15/19 07:40 Creatinine 1.0 mg/dL (0.55-1.3) 07/15/19 07:40 Est GFR (CKD-EPI)AfAm 121.55 07/15/19 07:40 Est GFR (CKD-EPI)NonAf 104.88 07/15/19 07:40 Random Glucose 70 mg/dL (74-106) L 07/15/19 07:40 Calcium 8.9 mg/dL (8.5-10.1) 07/15/19 07:40 Total Bilirubin 0.6 mg/dL (0.2-1) 07/15/19 07:40 AST 18 U/L (15-37) 07/15/19 07:40 ALT 18 U/L (13-61) 07/15/19 07:40 Alkaline Phosphatase 56 U/L (45-117) 07/15/19 07:40 Total Protein 6.4 g/dl (6.4-8.2) 07/15/19 07:40 Albumin 3.6 g/dl (3.4-5.0) 07/15/19 07:40 Urine Color Yellow 07/15/19 12:00 Urine Appearance Clear 07/15/19 12:00 Urine pH 6.5 (5.0-8.0) 07/15/19 12:00 Ur Specific [place] 1.024 (1.010-1.035) 07/15/19 12:00 Urine Protein Negative (NEGATIVE) 07/15/19 12:00 Urine Glucose (UA) Negative (NEGATIVE) 07/15/19 12:00 Urine Ketones Negative (NEGATIVE) 07/15/19 12:00 Urine Blood Negative (NEGATIVE) 07/15/19 12:00 Urine Nitrite Negative (NEGATIVE) 07/15/19 12:00 Urine Bilirubin Negative (NEGATIVE) 07/15/19 12:00 Urine Urobilinogen 0.2 mg/dL (0.2-1.0) 07/15/19 12:00 Ur Leukocyte Esterase Negative (NEGATIVE) 07/15/19 12:00 RPR Titer Nonreactive (NONREACTIVE) 07/15/19 07:40 lab noted Assessment: 07/18/19 12:23 opiate withdrawal Plan: methadone regimen
[2019-07-18] MEDS: NICOTINE POLACRILEX 2 MG GUM BUC PRN (12:51)
[2019-07-18] MEDS: IBUPROFEN 400 MG TABLET (FP) PO PRN (15:45)
--- NOTE | 2019-07-18 21:00 | DS ---
[facility] Detox Discharge Summary Admission Date: 07/14/19 Discharge Date: 07/18/19 - History Present History: Opioid Dependence Pertinent Past History: Pt was admitted for opioid detox- left one day early before last dose. Pt states he needs to go be at his program early tomorrow. Pt is not on any meds - Physical Exam Results Vital Signs: Vital Signs Temperature 98.6 F 07/18/19 17:04 Pulse Rate 67 07/18/19 17:04 Respiratory Rate 18 07/18/19 17:04 Blood Pressure 124/69 07/18/19 17:04 O2 Sat by Pulse Oximetry (%) - Medication Discharge Medications: Ambulatory Orders Naloxone HCl [Narcan] 4 mg NS ASDIR PRN #1 spray 07/17/19 - AMA Did Patient Leave Against Medical Advice: No
[2019-07-18 21:17] VITALS: BP 122/68; PULSE 76; TEMP 99.1
[2019-07-19] MEDS ORDERED: METHADONE HCL 5 MG TABLET (FOR DETOX USE ONLY) PO ONE (06:00)
== END 2019-07-18 21:15 | disposition home or self-care (01) | DRG 773 ==
LOC: YASAS 16:06 → Y3N 20:05
PROVIDERS: ADMIT Allergy & Immunology; ATTEND Allergy & Immunology
PROC: HZ2ZZZZ Detoxification Services for Substance Abuse Treatment (ICD-10-PCS; principal; 2019-07-14)
DX: F11.23 Opioid dependence with withdrawal (principal); F17.210 Nicotine dependence, cigarettes, uncomplicated; F19.24 Other psychoactive substance dependence with psychoactive substance-induced mood disorder; G47.00 Insomnia, unspecified; Z91.14 Patient's other noncompliance with medication regimen; Z56.0 Unemployment, unspecified
CPT/HCPCS: 36415; 80053; 81003; 85027; 86593; 93005; 93010